=== PATIENT | female | born 1965 ===

== ENCOUNTER → 2019-09-08 | Outpatient (CLI) | payer OTHER | LOC: MHCPAIN 09:53 | DX: M79.2 Neuralgia and neuritis, unspecified (principal); M25.511 Pain in right shoulder | CPT/HCPCS: G0463 ==

== ENCOUNTER → 2020-08-23 | Outpatient (CLI) | payer OTHER | LOC: COL.RAD 12:38 | DX: M25.511 Pain in right shoulder (principal) | CPT/HCPCS: J3301; Q9967 ==

== ENCOUNTER → 2021-05-01 | Outpatient (CLI) | payer OTHER | LOC: COL.RAD 12:06 | DX: M25.511 Pain in right shoulder (principal) ==